=== PATIENT | female | born 1970 | race Caucasian/White ===

== ENCOUNTER 2023-09-16 14:00 | Emergency (ER) | payer OTHER, SELFPAY ==
[2023-09-16 15:16] VITALS: BP 139/91; PULSE 78; RESP 16; TEMP 36.6; O2SAT 100
--- NOTE | 2023-09-16 15:48 | ED.EAR ---
HPI - Ear Problem General Chief complaint: Ear Stated complaint: Earache Source: patient Mode of arrival: ambulatory Limitations: no limitations History of Present Illness HPI Narrative: 52-year-old female presenting for complaint of right ear pain for about 1 week. Endorses hearing crackles., reports recent URI.Denies dizziness, tinnitus, nausea vomiting, fevers or chills. Not taking anything for symptoms. MD Complaint: ear pain Related Data Allergies Allergy/AdvReac Type Severity Reaction Status Date / Time No Known Allergies Allergy Unverified 11/20/18 11:43 Review of Systems Review of Systems: CONSTITUTIONAL: Denies malaise, chills, or fever. EYES: Denies visual changes, redness, or discharge. ENT: Denies rhinorrhea, congestion, sinus pain, and sore throat. Reports ear pain CARDIOVASCULAR: Denies chest pain, palpitations, or edema. RESPIRATORY: Denies cough or dyspnea. GASTROINTESTINAL: Denies abdominal pain, nausea, vomiting, diarrhea SKIN: Denies rash or itching. MUSCULOSKELETAL: Denies myalgia. NEUROLOGIC: Denies headache. All systems reviewed & are unremarkable except as noted in HPI and below PMFSH Past Medical History Medical History (Updated 09/16/23 @ 19:24 by Cielo Celeste, SHON) No pertinent past medical history Comments At time of signature, agree with nursing past medical, surgical, social and family history. There is no relevant family history pertinent to the presenting complaint Exam Narrative: GENERAL: Well-appearing HEAD: Normocephalic EYES: PERRLA, conjunctivae clear ENT: Nares clear. Mucous membranes moist. Bilateral TMs pearly martin with dull light reflex Right TM with clear effusion; no tragal tenderness. Oropharynx not erythematous without lesions. Oropharynx normal. no drooling, no hoarseness, no trismus, uvula midline. NECK: Supple. No lymphadenopathy CHEST: Clear to auscultation, breath sounds equal. No respiratory distress, speaks in full sentences. HEART: Regular rate and rhythm. No murmur heard. SKIN: Warm, dry, no rash. NEURO: Alert and oriented x3. PSYCH: Normal mood and affect Course Course Emergency Course: Patient is aware of diagnosis, understands and agrees to treatment plan. Anticipatory guidance given. Patient agrees to follow-up as directed and is aware of reasons to seek care at the emergency department. Portions of this record may have been created with voice recognition software Level of Care: Express Care Visit Vital Signs Vital signs: Vital Signs Temperature 98 F 09/16/23 15:16 Pulse Rate 78 09/16/23 15:16 Respiratory Rate 16 09/16/23 15:16 Blood Pressure 139/91 H 09/16/23 15:16 Pulse Oximetry 100 09/16/23 15:16 Temperature 98 F 09/16/23 15:16 Pulse Rate 78 09/16/23 15:16 Respiratory Rate 16 09/16/23 15:16 Blood Pressure 139/91 H 09/16/23 15:16 Pulse Oximetry 100 09/16/23 15:16 Reviewed Medical Decision Making MDM Narrative Medical decision making narrative: Discussed physical exam findings consistent with serous otitis media; advised supportive measures and signs/symptoms to go to the ER. Patient is appropriate for outpatient treatment and follow-up. Differential Diagnosis Differential Diagnosis: Coronavirus, strep pharyngitis, allergic rhinitis, upper respiratory tract infection, sinusitis, rhinosinusitis, nasopharyngitis, viral pharyngitis, otitis media, otitis externa, eustachian tube dysfunction, foreign body, cerumen impaction. Vital Signs Vital Signs: Vital Signs Temperature 98 F 09/16/23 15:16 Pulse Rate 78 09/16/23 15:16 Respiratory Rate 16 09/16/23 15:16 Blood Pressure 139/91 H 09/16/23 15:16 Pulse Oximetry 100 09/16/23 15:16 Temperature 98 F 09/16/23 15:16 Pulse Rate 78 09/16/23 15:16 Respiratory Rate 16 09/16/23 15:16 Blood Pressure 139/91 H 09/16/23 15:16 Pulse Oximetry 100 09/16/23 15:16 Discharge Plan Discharge Clinical Impression: O
== END 2023-09-16 15:59 | disposition home or self-care (01) ==
PROVIDERS: Emergency Provider Nurse Practitioner Family; PCP Internal Medicine
DX: H65.01 Acute serous otitis media, right ear (principal)
CPT/HCPCS: 99203; G0463

== ENCOUNTER 2024-02-22 08:20 | Emergency (ER) | payer OTHER, SELFPAY ==
--- NOTE | ~2024-02-22 | XR_ITS ---
EXAMINATION: XR knee RT 3V DATE: 02/22/2024 08:55 INDICATION: Anterior right knee pain and swelling TECHNIQUE: Weight bearing anteroposterior, sunrise, and flexed lateral views of the right knee were o btained COMPARISON: None. FINDINGS: Alignment is normal. No fracture. There is moderate joint space narrowing in the medial compartment with marginal osteophytes along the medial rim of the medial tibial plateau. Normal joint spaces in t he lateral and patellofemoral compartments with tiny marginal osteophytes along the patella. Likely s mall right knee joint effusion. Soft tissues are otherwise unremarkable. IMPRESSION: 1. Moderate medial compartment and minimal patellofemoral compartment osteoarthritis with small right knee joint effusion. Reviewed, dictated and finalized at location B. IMPRESSION: 1. Moderate medial compartment and minimal patellofemoral compartment osteoarth ritis with small right knee joint effusion.
[2024-02-22 08:32] VITALS: BP 117/85; PULSE 88; RESP 16; TEMP 36.6; O2SAT 100
--- NOTE | 2024-02-22 08:37 | ED.LOWEXIN ---
HPI - Extremity Injury (Lower) General Chief Complaint: Extremity Injury, Lower Stated Complaint: R KNEE PAIN Time Seen by Provider: 02/22/24 08:37 Source: patient Mode of arrival: ambulatory Limitations: no limitations History of Present Illness HPI Narrative: 53-year-old female presents with complaint of right knee pain and swelling. Patient reports that pain started Tuesday after attending a cardio class. No known injury during class. Patient states that she attends this class often. Is aware that she has arthritis to right knee and has an orthopedic doctor for cortisone injections. Ambulatory with limp. Taking ibuprofen to treat pain. All systems reviewed and negative except as noted above. Related Data Home Medications Medication Instructions Recorded Confirmed No Home Medications 02/22/24 02/22/24 Allergies Allergy/AdvReac Type Severity Reaction Status Date / Time No Known Allergies Allergy Unverified 02/22/24 08:49 Review of Systems Review of Systems: CONSTITUTIONAL: Denies fever, chills, or sweats. EYES: Denies visual changes, redness, or discharge. ENT: Denies rhinorrhea, congestion, sore throat, or otalgia. CARDIOVASCULAR: Denies chest pain, palpitations, or edema. RESPIRATORY: Denies cough or dyspnea. GASTROINTESTINAL: Denies abdominal pain, nausea, vomiting, or diarrhea. GENITOURINARY: Denies dysuria or hematuria. SKIN: Denies rash or itching. MUSCULOSKELETAL: Denies back pain. Reports pain and swelling to right knee NEUROLOGIC: Denies headache, numbness, or weakness. PSYCHIATRIC: Denies anxiety or depression. All other systems reviewed are negative, except as documented in HPI. [facility] Past Medical History Medical History (Updated 02/22/24 @ 09:10 by Lona Owens NP) No pertinent past medical history Comments At time of signature, agree with nursing past medical, surgical, social and family history. There is no relevant family history pertinent to the presenting complaint. Exam Narrative: GENERAL: This is a well-nourished, well-developed patient, in no apparent distress. HEAD: normocephalic, atraumatic. EYES: PERRL. Sclera clear/white. Vision is grossly intact. EARS: External ears normal NOSE: External nose normal NECK: Neck supple, non-tender without lymphadenopathy, masses or thyromegaly. CARDIOVASCULAR: Regular rate and rhythm without murmurs, gallops, or rubs. RESPIRATORY: Clear to auscultation. Breath sounds equal bilaterally. No wheezes, rales, or rhonchi. SKIN: warm, Dry, intact with no suspicious lesions or rash, good texture and turgor. NEURO: awake, alert, and oriented to person, place and time. There were no obvious focal neurologic abnormalities. EXTREMITIES: Moderate swelling to right knee. Tenderness to medial and patella and femoral aspect. Effusion noted. No warmth or erythema. No deformity. Flexion decreased due to pain. Negative anterior posterior drawer testing. Course Course Level of Care: Express Care Visit Vital Signs Vital signs: Vital Signs Temperature 36.6 C 02/22/24 08:32 Pulse Rate 88 02/22/24 08:32 Respiratory Rate 16 02/22/24 08:32 Blood Pressure 117/85 02/22/24 08:32 Pulse Oximetry 100 02/22/24 08:32 Temperature 36.6 C 02/22/24 08:32 Pulse Rate 88 02/22/24 08:32 Respiratory Rate 16 02/22/24 08:32 Blood Pressure 117/85 02/22/24 08:32 Pulse Oximetry 100 02/22/24 08:32 Reviewed MDM - Extremity Injury (Lower) MDM Narrative Medical decision making narrative: Patient is aware of diagnosis, understands and agrees to treatment plan. Anticipatory guidance given. Patient agrees to follow-up as directed and is aware of reasons to seek care at the emergency department. Portions of this record may have been created with voice recognition software Discussed x-ray results with patient. 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 Given disc with images. Maylin
== END 2024-02-22 09:14 | disposition home or self-care (01) ==
PROVIDERS: Emergency Provider Nurse Practitioner Family
DX: M25.461 Effusion, right knee (principal); M17.11 Unilateral primary osteoarthritis, right knee
CPT/HCPCS: 73562; 99213; G0463

== ENCOUNTER 2024-08-06 17:27 | Emergency (ER) | payer OTHER, SELFPAY ==
--- NOTE | ~2024-08-06 | XR_ITS ---
XR chest 2V Ordering provider: Daniel Silver MD History: 53 years Female with . cp . Comparison: None. FINDINGS: MEDIASTINUM: The cardiac silhouette is not enlarged. LUNGS: No infiltrates, effusions or pneumothorax. OTHER: No free air under the diaphragm. IMPRESSION: No acute cardiopulmonary pathology. Reviewed, dictated and finalized at location A.
--- NOTE | ~2024-08-06 | CT_ITS ---
EXAMINATION: CTA chest DATE: 08/06/2024 19:20 INDICATION: Chest and back pain TECHNIQUE: Computed tomographic angiography (CTA) of the chest was performed with 100 mL Omnipaque-35 0 intravenous contrast. Volume-rendered 3D-reconstructions of the aorta and large arteries were const ructed by the technologist on a separate workstation. Automated exposure control and iterative recons truction technique were employed. The dose-length product was 249.29 mGy-cm. COMPARISON: None. FINDINGS: Eventration along the right hemidiaphragm. Minimal dependent atelectasis in the right lower lobe. No pneumonia, pulmonary edema, pleural effusion or pneumothorax. Heart size is normal. No pericardial ef fusion. Thoracic aorta is normal in caliber with no dissection. Large right paratracheal lymph node m easuring 2.4 x 1.6 cm. No other pathologically enlarged thoracic lymphadenopathy. Cholecystectomy cli ps the gallbladder fossa. Mild to moderate thoracic spondylosis with minimal chronic appearing anteri or wedging at T6 and T7. IMPRESSION: 1. Normal thoracic aorta with no aneurysm or dissection. No other acute cardiopulmonary disease. 2. Enlarged right paratracheal lymph node which likely reactive although differential includes lympho ma or metastatic disease in the appropriate clinical setting. Evaluation is somewhat limited by strea k artifact from dense contrast in the adjacent superior vena cava this could potentially represent ei ther artifactual appearance of enlargement resulting 2 adjacent separate lymph nodes or fluid within a superior pericardial recess. Reviewed, dictated and finalized at location A. IMPRESSION: 1. Normal thoracic aorta with no aneurysm or dissection. No other acute cardiop ulmonary disease. 2. Enlarged right paratracheal lymph node which likely reactive although differ ential includes lymphoma or metastatic disease in the appropriate clinical sett ing. Evaluation is somewhat limited by streak artifact from dense contrast in t he adjacent superior vena cava this could potentially represent either artifact ual appearance of enlargement resulting 2 adjacent separate lymph nodes or flui d within a superior pericardial recess.
[2024-08-06 17:27] VITALS: PULSE 75; RESP 20; TEMP 36.4; O2SAT 100
--- NOTE | 2024-08-06 17:30 | ECG_ITS ---
Test Date: 2024-08-06 17:34:41 Measurements Intervals [place] Rate: 73 P: 62 DE: 137 QRS: 44 QRSD: 95 T: 24 QT: 382 QTc: 422 Interpretive Statements SINUS RHYTHM LEFT ATRIAL ENLARGEMENT BORDERLINE T WAVE ABNORMALITY- ANT/INF LEADS BASELINE ARTIFACT- I, II, III, AVR, AVL, AVF BORDERLINE ECG No previous ECG available for comparison Electronically Signed On 08-06-2024 18:49:15 CDT by Shayne Olsen D.O.
[2024-08-06 17:48] VITALS: O2SAT 100
[2024-08-06 18:05] LABS: Basophils Absolute Auto 0.1 K/mm3 (0.0-0.1); Basophils Percent Auto 1.2 % (0.2-1.2); Eosinophils Absolute Auto 0.1 K/mm3 (0-0.3); Eosinophils Percent Auto 1.5 % (0-4.4); Hematocrit 44.5 % (37.0-47.0); Hemoglobin 14.9 g/dL (12.0-15.0); Immature Granulocyte Absolute 0.01 K/mm3 (0.00-0.031); Immature Granulocyte Percent A 0.1 % (0-0.5); Lymphocytes Percent Auto 38.5 % (18.3-44.2); Mean Corpuscular HGB Conc 33.5 g/dl (32-36); Mean Corpuscular Hemoglobin 29.7 pg (26-34); Mean Corpuscular Volume 88.8 fl (80-100); Mean Platelet Volume 11.3 fl (7.4-10.4); Monocytes Absolute Auto 0.5 K/mm3 (0.1-0.6); Monocytes Percent Auto 6.8 % (2.6-8.5); Neutrophils Absolute Auto 3.9 K/mm3 (1.3-6.7); Neutrophils Percent Auto 51.9 % (45.5-73.1); Platelet Count Result 235 k/mm3 (150-375); Red Blood Count 5.01 M/mm3 (4.2-5.4); Red Cell Distribution Width 13.2 % (11.5-14.5); White Blood Count 7.5 K/mm3 (4.5-10.0)
[2024-08-06 18:18] LABS: Prothrombin Time 13.5 Seconds (11.1-14.7)
[2024-08-06 18:19] LABS: Partial Thromboplastin Time 29.8 Seconds (22.3-36.8)
[2024-08-06 18:24] LABS: Alanine Aminotransferase 29 U/L (6-35); Albumin Level 4.6 g/dL (3.5-5.1); Alkaline Phosphatase 93 U/L (38-126); Anion Gap 9 mmol/L (4-12); Aspartate Amino Transferase 34 U/L (14-36); Bilirubin,Total 1.1 mg/dL (0.2-1.3); Blood Urea Nitrogen 20 mg/dL (7-17); Calcium 9.3 mg/dL (8.4-10.2); Carbon Dioxide 28 mmol/L (22-30); Chloride 100 mmol/L (98-107); Estimated CRCL calculation 66 ml/min; Estimated Glomerular Filt Rate > 60; Glucose 93 mg/dL (65-110); Lipase 106 U/L (23-300); Potassium 3.7 mmol/L (3.4-5.0); Sodium 137 mmol/L (137-145)
[2024-08-06 18:27] LABS: D Dimer 0.28 ug/mL (<0.48)
[2024-08-06] MEDS: ASPIRIN 81 MG CHEWABLE TABLET 324 MG PO (18:32)
[2024-08-06 18:33] LABS: NT Pro B Type Natriuretic Pept 76 pg/mL (19.9-100)
--- NOTE | 2024-08-06 18:33 | ED.CHESTPAIN ---
HPI - Chest Pain General Chief Complaint: Chest Pain Stated Complaint: chest pain Time Seen by Provider: 08/06/24 18:11 Source: patient Mode of arrival: ambulatory Limitations: no limitations History of Present Illness HPI narrative: This is a this 3-year-old female, with no significant past medical history, presents to the emergency department complaining of chest pain for the past hour and a half. The patient states she was changing her clothes, when she felt quick onset left-sided sharp, moderate to severe chest pain radiating from the left anterior chest to the back. She denies any known aggravating alleviating factors. She denies shortness of breath, weakness, numbness, lightheadedness, palpitations or loss of consciousness. She has no other complaints at this time. Related Data Home Medications Medication Instructions Recorded Confirmed No Home Medications 02/22/24 02/22/24 Allergies Allergy/AdvReac Type Severity Reaction Status Date / Time No Known Allergies Allergy Verified 08/06/24 17:28 Review of Systems Review of Systems: All systems reviewed & are unremarkable except as noted in HPI and below PMFSH Past Medical History Medical History No pertinent past medical history Surgical History Surgical History No significant past surgical history Social History Social History Smoking status: Never smoker Alcohol intake: never Substance use: never Exam Narrative: GENERAL: Well-developed, well-nourished, and in no acute distress. HEAD: Normocephalic, atraumatic. EYES: PERRLA and EOMI. CHEST: Clear to auscultation. No respiratory distress. No wheezes rales or rhonchi. No pain with palpation of the anterior chest wall HEART: Regular rate and rhythm. No murmur heard. Normal peripheral pulses. ABDOMEN: Soft, nontender, nondistended, normal active bowel sounds. EXTREMITIES: Normal range of motion. No edema. SKIN: Warm, dry, no rash. NEURO: Alert and oriented x3. No focal deficit. Moving all 4 limbs spontaneously PSYCH: Normal mood and affect. Course Course Emergency Course: 18:36 - Heart score 2. Wells score 3 though D-dimer negative. Chest x-ray not concerning for pneumothorax or other acute cardiopulmonary process. Will obtain a CTA of the chest to rule out dissection. 20:01 -on re-evaluation, the patient states her pain is improved. CTA chest not concerning for dissection or embolism. There is a large right paratracheal lymph node measuring 2.4 x 1.6 cm noted on imaging, described as likely a reactive lymph node, though changes concerning for lymphoma not ruled out. I discussed these findings with the patient. Will discharge with recommendation for primary care follow-up. I discussed the findings and recommendations with the patient. Discussed return and emergency precautions including signs/symptoms of ACS respiratory distress. The patient voiced understanding and agreement with the plan. All questions answered to her satisfaction. Vital Signs Vital signs: Vital Signs Temperature 97.5 F L 08/06/24 17:27 Pulse Rate 75 08/06/24 17:27 Respiratory Rate 20 08/06/24 17:27 Pulse Oximetry 100 08/06/24 17:27 Oxygen Delivery Room Air 08/06/24 17:27 Temperature 97.4 F L 08/06/24 19:48 Pulse Rate 75 08/06/24 19:48 Respiratory Rate 21 H 08/06/24 19:48 Blood Pressure 135/85 08/06/24 19:48 Pulse Oximetry 100 08/06/24 19:48 Oxygen Delivery Room Air 08/06/24 17:48 MDM - Chest Pain MDM Narrative Medical decision making narrative: Plan: Labs, imaging, pain control, EKG, troponin, reassess Differential Diagnosis Differential diagnosis: Likely pneumothorax and other (ACS, PE, dissection, pleurisy, costochondritis, metabolic abnormality, other) Lab Data 08/06/24 17:57 08/06/24 17:5
[2024-08-06 18:35] LABS: Troponin I < 0.012 ng/mL (0.000-0.034)
[2024-08-06 18:46] VITALS: BP 140/93; PULSE 63; RESP 15; O2SAT 100
[2024-08-06] MEDS: ACETAMINOPHEN 500 MG TABLET 1000 MG PO (18:46)
[2024-08-06 19:48] VITALS: BP 135/85; PULSE 75; RESP 21; TEMP 36.3; O2SAT 100
[2024-08-06] MEDS: KETOROLAC 15 MG/ML VIAL (*BKC) IV PUSH (20:12)
== END 2024-08-06 20:16 | disposition home or self-care (01) ==
PROVIDERS: Emergency Medicine; Emergency Provider Preventive Medicine Aerospace Medicine; PCP Nurse Practitioner
DX: R07.89 Other chest pain (principal); R09.1 Pleurisy; R59.0 Localized enlarged lymph nodes; R94.31 Abnormal electrocardiogram [ECG] [EKG]
CPT/HCPCS: 36415; 71046; 71275; 80053; 83690; 83880; 84484; 85025; 85380; 85610; 85730; 93005; 96372; 96374; 99284; A9270; J1885; Q9967